=== PATIENT | female | born 1970 | race Caucasian/White ===

== ENCOUNTER 2016-11-23 08:08 | Day surgery (SDC) | payer OTHER ==
[2016-11-14 12:49] VITALS: BMI 29.7
[2016-11-23] MEDS ORDERED: MIDAZOLAM HCL 2 MG/2 ML SINGLE DOSE VIAL ONE (09:18)
[2016-11-23] MEDS ORDERED: PROPOFOL 20 ML ONE ×2 (09:18)
[2016-11-23] MEDS ORDERED: LIDOCAINE HCL/PF 2% SDV 5ML VIAL ONE (09:20)
[2016-11-23] MEDS ORDERED: DEXAMETHASONE SOD PHOSPHATE 4 MG/1 ML VIAL ONE (09:20)
[2016-11-23] MEDS ORDERED: ONDANSETRON 4 MG/2 ML VIAL ONE ×2 (09:20→11:40)
[2016-11-23] MEDS ORDERED: LIDOCAINE HCL 2% JELLY (5 ML/TUBE) ONE (09:20)
[2016-11-23] MEDS ORDERED: ceFAZolin SODIUM 1 GM VIAL ONE (09:20)
[2016-11-23] MEDS ORDERED: KETOROLAC TROMETHAMINE 30 MG/1 ML VIAL ONE (09:20)
[2016-11-23] MEDS ORDERED: BUPIVACAINE HCL/PF 2.5 MG/ML - 30 ML VIAL IJ ONE (09:46)
[2016-11-23] MEDS ORDERED: BUPIVACAINE HCL/PF 0.25% (2.5MG/ML) 10 ML VIAL IJ ONE (10:37)
[2016-11-23 11:40] VITALS: TEMP 97.5
[2016-11-23] MEDS ORDERED: LACTATED RINGERS SOLUTION 1,000 ML IV SCH (12:00)
[2016-11-23] MEDS ORDERED: ONDANSETRON 4 MG/2 ML VIAL IVPUSH PRN (12:16)
[2016-11-23] MEDS ORDERED: oxyCODONE HCL 5 MG TABLET PO PRN ×2 (12:17)
[2016-11-23] MEDS ORDERED: oxyCODONE HCL 5 MG TABLET ONE (12:57)
[2016-11-23 15:56] VITALS: PULSE 86
[2016-11-23 16:00] VITALS: BP 126/64
--- NOTE | 2016-11-28 13:13 | PATH ---
Surgical Pathology Report Patient Name: AJ CHERY [facility]. Rec. #: [id number] /Age/Gender: 1970 (Age: 46) / F Account: [id number] Location: [facility] AMBUL[facility] Taken: 11/23/2016 Received: 11/23/2016 Reported: 11/28/2016 Physicians: Jayden Luis M.D. Specimen(s) Received RIGHT KNEE SHAVINGS Clinical History Internal derangement Final Diagnosis KNEE, RIGHT, ARTHROSCOPIC SHAVINGS: FIBROSYNOVIAL AND FIBROCARTILAGINOUS TISSUE. Electronically Signed Monika Clarke M.D. Gross Description Received in formalin, labeled "right knee shavings," is a 4.0 x 2.5 x 0.4 cm. aggregate of siddiqi-yellow soft tissue fragments. A professional healthcare representative portion is submitted in one cassette. /11/23/201611/23/2016
--- NOTE | 2016-12-02 22:42 | OP ---
DATE OF OPERATION: 11/23/2016 SURGEON: Jayden Saldana M.D. TRANSPORTATION DRIVER: Cj Lamb PREOPERATIVE DIAGNOSIS: 1. Right knee medial and lateral meniscus tear. 2. Right knee cartilage injury. 3. Right knee synovitis. POSTOPERATIVE DIAGNOSIS: 1. Right knee medial and lateral meniscus tear. 2. Right knee cartilage injury. 3. Right knee synovitis. PROCEDURE: 1. Right knee arthroscopy, partial meniscectomy of lateral meniscus. 2. Right knee arthroscopy with chondroplasty and abrasion-plasty. 3. Right knee arthroscopy with synovectomy, major. CPT CODE: 49609, 78509, 68943. FINDINGS: 1. Medial meniscus body and posterior horn tear. 2. Lateral meniscus body and posterior horn tear. 3. Synovitis, patellofemoral and lateral notch area. 4. Central grade 2 to 3 cartilage injury, medial tibial plateau. 5. ACL and PCL intact. 6. Minor grade 1 to 2 cartilage injury to plateau. 7. Centigrade 2 to 4 cartilage injury to patellofemoral trochlea. PROCEDURE: Informed consent was obtained. The patient was taken to the operating room where the right lower extremity was prepped and draped in a sterile fashion. A tourniquet was placed on the right upper thigh but not inflated. Using standard arthroscopic technique, a lateral incision and portal were made which allowed for introduction of the camera into the suprapatellar bursa. This was then taken to the medial joint line where under direct visualization, a medial incision and portal were made. Excessive synovium noted in the medial, lateral, patellofemoral and notch area was removed by the up-biting shaver and Bovie cautery. This was found to bring inflammatory tissue into the joint surface, a source of joint pain and dysfunction. Probing of the medial and lateral meniscus found tears described in the findings. These were removed with an up-biting shaver and taken back to a stable rim. Grade 2-3 degenerative changes were treated with chondroplasty, removing all flaking surfaces with low setting Bovie used along the periphery. Grade 4 changes were treated with abrasion-plasty. All areas of the knee were once again re-examined. The knee was then drained. A single suture was placed on all portals. Sterile dressing was placed. The patient was transferred to the recovery room. JAYDEN SALDANA M.D. [id number]
== END 2016-11-23 13:30 | disposition home or self-care (01) ==
LOC: FASU 08:08
PROVIDERS: ATTEND Orthopaedic Surgery
PROC: 0SBC4ZZ Excision of Right Knee Joint, Percutaneous Endoscopic Approach (ICD-10-PCS; 2016-11-23)
PROC: 0SBC4ZZ Excision of Right Knee Joint, Percutaneous Endoscopic Approach (ICD-10-PCS; 2016-11-23)
PROC: 0SBC4ZZ Excision of Right Knee Joint, Percutaneous Endoscopic Approach (ICD-10-PCS; principal; 2016-11-23 10:56)
DX: S83.241A Other tear of medial meniscus, current injury, right knee, initial encounter (principal); S83.281A Other tear of lateral meniscus, current injury, right knee, initial encounter; S83.8X1A Sprain of other specified parts of right knee, initial encounter; M65.861 Other synovitis and tenosynovitis, right lower leg; X58.XXXA Exposure to other specified factors, initial encounter; Y93.9 Activity, unspecified; Y92.9 Unspecified place or not applicable
CPT/HCPCS: 84703; 88304-TC; 94760

== ENCOUNTER 2017-03-19 05:09 | Day surgery (SDC) | payer OTHER ==
[2017-03-15 15:29] VITALS: BMI 29.1
[2017-03-19] MEDS ORDERED: MIDAZOLAM HCL 2 MG/2 ML SINGLE DOSE VIAL ONE (09:55)
[2017-03-19] MEDS ORDERED: LIDOCAINE HCL/PF 2% SDV 5ML VIAL ONE (09:55)
[2017-03-19] MEDS ORDERED: PROPOFOL 20 ML ONE (09:55)
[2017-03-19] MEDS ORDERED: DEXAMETHASONE SOD PHOSPHATE 4 MG/1 ML VIAL ONE (09:56)
--- NOTE | 2017-03-19 10:34 | OP ---
Operative Note - Note: Operative Date: 03/19/17 Pre-Operative Diagnosis: 46yo P1 with postmenopausal bleed, endometrial polyp on the sonogram Operation: Hysteroscopy,Polypectomy, D&C Findings: Minimal polypoid tissue Post-Operative Diagnosis: Same as Pre-op Surgeon: Liz Adames Anesthesiologist/FOILING MACHINE OPERATOR: Ileana Munguia Anesthesia: General Specimens Removed: 1. Endometrial curettings, polypoid tissue Estimated Blood Loss (mls): 5 Drains & Tubes with Location: Fluid deficit 150cc Drains, Volume Out (mls): 150 Fluid Volume Replaced (mls): 400 Operative Report Dictated: Yes
--- NOTE | 2017-03-19 10:34 | HP ---
History & Physical Update - History History: No Change - Physical Physical: No Change - Assessment Assessment: No Change - Plan Plan: No Change (Consent signed and witnessed)
[2017-03-19] MEDS ORDERED: KETOROLAC TROMETHAMINE 30 MG/1 ML VIAL ONE (11:03)
[2017-03-19] MEDS ORDERED: oxyCODONE HCL 5 MG TABLET PO PRN (11:38)
[2017-03-19] MEDS ORDERED: IBUPROFEN 600 MG TABLET (FP) PO PRN (11:38)
[2017-03-19] MEDS ORDERED: ONDANSETRON 4 MG/2 ML VIAL IVPB PRN (11:38)
[2017-03-19] MEDS ORDERED: IBUPROFEN 800 MG/8 ML IJ IVPB PRN (11:38)
[2017-03-19] MEDS ORDERED: ELECTROLYTE-148 SOLN 1,000 ML IV SCH (11:45)
[2017-03-19] MEDS ORDERED: PROMETHAZINE HCL 25 MG/1 ML VIAL IVPUSH PRN (12:17)
[2017-03-19] MEDS ORDERED: LACTATED RINGERS SOLUTION 1,000 ML IV SCH (12:30)
[2017-03-19 12:56] VITALS: TEMP 97.7
[2017-03-19 14:01] VITALS: BP 114/76; PULSE 68
--- NOTE | 2017-03-20 13:14 | OP ---
DATE OF OPERATION: 03/19/2017 PREOPERATIVE DIAGNOSIS: A 46-year-old para 1 with postmenopausal bleeding and endometrial polyp on sonogram. POSTOPERATIVE DIAGNOSIS: A 46-year-old para 1 with postmenopausal bleeding and endometrial polyp on sonogram. PROCEDURE PERFORMED: Hysteroscopy, polypectomy, dilatation and curettage. SURGEON: Liz Adames MD ANESTHESIOLOGIST: Ileana Munguia MD ANESTHESIA: General. FINDINGS: Polypoid endometrial tissue. SPECIMEN REMOVED: Endometrial curettings and polypoid tissue. DESCRIPTION OF PROCEDURE: After ensuring informed consent, the patient was brought to the operating room, where she was placed in the dorsal lithotomy position. After achieving adequate anesthesia, the perineum was prepped and draped in sterile fashion. Urine was drained sterilely, 150 mL. After the ACMI scope was assembled, white balanced and found to be in full operation, Pedroza retractors were placed vaginally. A single-tooth tenaculum was used to articulate the anterior surface of the anterior cervical lip. The cervix was gradually dilated with Trivedi dilators up to 17 gauge. The uterus was approximately 5 cm in size. The 5-mm hysteroscope was introduced and some polypoid tissue was encountered. The serrated sharp curet was used to remove access of endometrial tissue as well as polypoid tissue, which was subsequently sent for pathology. The uterine cavity was reentered with the hysteroscope and the uterine cavity was found to be fully denuded and intact. Fluid balance deficit was 150 mL. The hysteroscope was removed and all instruments subsequently were removed from the vagina. Excellent hemostasis was noted. Estimated blood loss was 5 mL. The patient received 400 mL of PlasmaLyte. She was extubated, placed into the supine position, and brought into the recovery room extubated and in stable condition. Instrument and sponge counts were correct x2 prior to the patient being moved to the recovery room. Tosha [id number]
--- NOTE | 2017-03-20 14:32 | PATH ---
Surgical Pathology Report Patient Name: AJ CHERY [facility]. Rec. #: [id number] /Age/Gender: 1970 (Age: 46) / F Account: [id number] Location: [facility] SUR[facility] Taken: 03/19/2017 Received: 03/19/2017 Reported: 03/20/2017 Physicians: Liz Adames M.D. Specimen(s) Received ENDOMETRIAL & POLYPOID TISSUE Clinical History Uterine polyp and postmenopausal bleeding Final Diagnosis ENDOMETRIAL AND POLYPOID TISSUE, CURETTAGE: POLYPOID FRAGMENTS OF DISORDERED PROLIFERATIVE ENDOMETRIUM WITH STROMAL BREAKDOWN CHANGE. FRAGMENTS OF BENIGN ENDOCERVICAL TISSUE FRAGMENTS OF BENIGN SQUAMOUS EPITHELIUM. Electronically Signed [place] Major M.D. Gross Description Received in formalin labeled "endometrial and polypoid tissue" is a 2.2 x 1.9 x 0.3 cm aggregate of siddiqi red soft tissue fragments. The formalin is filtered and the specimen is entirely submitted in one cassette. /03/19/2017 saudi03/19/2017
== END 2017-03-19 14:02 | disposition home or self-care (01) ==
LOC: JASU-SURG 05:09
PROVIDERS: ATTEND Obstetrics & Gynecology
PROC: 0UB98ZX Excision of Uterus, Via Natural or Artificial Opening Endoscopic, Diagnostic (ICD-10-PCS; principal; 2017-03-19 10:00)
PROC: 0UDB8ZX Extraction of Endometrium, Via Natural or Artificial Opening Endoscopic, Diagnostic (ICD-10-PCS; 2017-03-19 10:00)
DX: N93.9 Abnormal uterine and vaginal bleeding, unspecified (principal); N84.0 Polyp of corpus uteri
CPT/HCPCS: 71020-TC; 84703; 88305-TC; 94760

== ENCOUNTER 2017-11-08 08:49 | Day surgery (SDC) | payer OTHER ==
[2017-11-04 12:14] VITALS: BMI 28.8
[2017-11-08] MEDS ORDERED: BUPIVACAINE HCL/PF 2.5 MG/ML - 30 ML VIAL IJ ONE (12:14)
[2017-11-08] MEDS ORDERED: MIDAZOLAM HCL 2 MG/2 ML SINGLE DOSE VIAL ONE (12:48)
[2017-11-08] MEDS ORDERED: KETOROLAC TROMETHAMINE 30 MG/1 ML VIAL ONE (13:00)
[2017-11-08] MEDS ORDERED: ONDANSETRON 4 MG/2 ML VIAL ONE (13:00)
[2017-11-08] MEDS ORDERED: ceFAZolin SODIUM 1 GM VIAL ONE (13:00)
[2017-11-08] MEDS ORDERED: DEXAMETHASONE SOD PHOSPHATE 4 MG/1 ML VIAL ONE (13:00)
[2017-11-08] MEDS ORDERED: oxyCODONE HCL 5 MG TABLET PO PRN (13:24)
[2017-11-08] MEDS ORDERED: ONDANSETRON 4 MG/2 ML VIAL IVPUSH PRN (13:24)
[2017-11-08] MEDS ORDERED: BUPIVACAINE HCL/PF 0.25% (2.5MG/ML) 10 ML VIAL IJ ONE (13:28)
[2017-11-08] MEDS ORDERED: LACTATED RINGERS SOLUTION 1,000 ML IV SCH (13:30)
[2017-11-08 15:16] VITALS: TEMP 97.5
[2017-11-08] MEDS ORDERED: diphenhydrAMINE HCL 25 MG CAPSULE (FP) PO ONE ×2 (15:37→15:39)
[2017-11-08 17:30] VITALS: BP 129/83; PULSE 64
--- NOTE | 2017-11-10 22:36 | OP ---
DATE OF OPERATION: 11/08/2017 SURGEON: Jayden Saldana M.D. GROCERY STORE BAGGER: Cj Lamb PREOPERATIVE DIAGNOSIS: 1. Right knee medial lateral meniscal tear. 2. Right knee cartilage injury. 3. Right knee synovitis. POSTOPERATIVE DIAGNOSIS: 1. Right knee medial lateral meniscal tear. 2. Right knee cartilage injury. 3. Right knee synovitis. PROCEDURE: 1. Right knee arthroscopy, partial meniscectomy medial and lateral meniscus. 2. Right knee arthroscopy with chondroplasty and abrasion plasty. 3. Right knee arthroscopy synovectomy including removal of medial plica. FINDINGS: 1. Medial meniscus body and posterior horn tear. 2. Lateral meniscus posterior horn tear. 3. Synovitis patellofemoral medial lateral notch area. 4. Multiple loose bodies. 5. Central grade 2 to 3 cartilage injury medial femoral condyle with grade 1 changes medial tibial plateau. 6. ACL and PCL intact. 7. Diffuse grade 1-2 cartilage injury medial plateau. 8. Central grade 2-4 cartilage injury patellofemoral trochlea with grade 2 changes patella. PROCEDURE: Informed consent was obtained. The patient came to the operating room, where the lower extremity was prepped and draped in a sterile fashion. A tourniquet was placed on the upper thigh, but not inflated. Using standard arthroscopic technique, a lateral incision and portal was made to allow for introduction of the camera into the suprapatellar bursa. This was then taken to the medial joint line, where under direct visualization, a medial incision and portal was made. Excessive synovium noted in the medial, lateral and patellofemoral and notch area was removed by an upbiter, shaver and Bovie cautery. This was found to bring in inflammatory tissue into the joint surface, a source of pain and dysfunction. Probing of the medial and lateral meniscus found tears, as described in the findings. These were removed with the upbiter and shaver and taken back to a stable rim. Grade 2 to 3 degenerative changes were treated with a chondroplasty, removing all flaking surfaces with low-setting Bovie along the periphery to prevent further flaking. Grade 4 changes, as noted, were treated with an abrasoplasty, creating a bleeding surface at the bone/cartilage interface. Aggressive debridement with shaver/burt created bleeding surface. Mirco fracture also done when indicated in findings All areas of the knee were once again reexamined. The knee was then drained and a single suture was placed in all portals. A sterile dressing was placed and the patient was transferred to the recovery room without complication. ADDENDUM: Please note that extensive loose bodies were debrided and all compartments posterior portion of the knee. JAYDEN SALDANA M.D. [id number]
--- NOTE | 2017-11-13 17:09 | PATH ---
Surgical Pathology Report Patient Name: AJ CHERY Med. Rec. #: [id number] /Age/Gender: 1970 (Age: 47) / F Account: [id number] Location: [facility] AMBULATORY Taken: 11/08/2017 Received: 11/08/2017 Reported: 11/13/2017 Physicians: Jayden Luis M.D. Specimen(s) Received SHAVINGS RIGHT KNEE Clinical History Right knee internal derangement Final Diagnosis KNEE, RIGHT, ARTHROSCOPIC SHAVINGS: CARTILAGE AND FIBROSYNOVIAL TISSUE. Electronically Signed Monika Clarke M.D. Gross Description Received in formalin, labeled "shavings right knee" is a 2.5 x 1.6 x 0.3 cm. aggregate of siddiqi-yellow soft tissue fragments. A outside energy sales representatives portion is submitted in one cassette. /11/11/201711/11/2017
== END 2017-11-08 16:50 | disposition home or self-care (01) ==
LOC: FASU 08:49
PROVIDERS: ATTEND Orthopaedic Surgery
PROC: 0SBC4ZZ Excision of Right Knee Joint, Percutaneous Endoscopic Approach (ICD-10-PCS; 2017-11-08)
PROC: 0SBC4ZZ Excision of Right Knee Joint, Percutaneous Endoscopic Approach (ICD-10-PCS; 2017-11-08)
PROC: 0SBC4ZZ Excision of Right Knee Joint, Percutaneous Endoscopic Approach (ICD-10-PCS; principal; 2017-11-08 13:11)
DX: S83.241A Other tear of medial meniscus, current injury, right knee, initial encounter (principal); S83.281A Other tear of lateral meniscus, current injury, right knee, initial encounter; S83.8X1A Sprain of other specified parts of right knee, initial encounter; M65.861 Other synovitis and tenosynovitis, right lower leg; X58.XXXA Exposure to other specified factors, initial encounter; Y93.9 Activity, unspecified; Y92.9 Unspecified place or not applicable
CPT/HCPCS: 88304-TC; 94760